=== PATIENT | male | born 1945 | race Caucasian/White ===

== ENCOUNTER 2017-09-15 10:24 | Day surgery (SDC) | payer MEDICARE, OTHER ==
[2017-09-14 09:46] LABS: CHLORIDE 108 mmol/L (98-107)
[2017-09-14 09:47] LABS: ALANINE AMINOTRANSFERASE 19 U/L (12-78); ALBUMIN 3.9 g/dL (3.4-5.0); ANION GAP 5 mmol/L (5-15); CALCIUM 8.5 mg/dL (8.5-10.1)
[2017-09-14 09:49] LABS: ALKALINE PHOSPHATASE 69 U/L (45-117); CREATININE 0.77 mg/dL (0.7-1.3); TOTAL PROTEIN 7.7 g/dL (6.4-8.2)
[~2017-09-15] VITALS: Ht 182.9 cm; Wt 96.3 kg
[~2017-09-15 10:24] MED LIST: ENAL10TA PO; LACTATED RINGERS 1,000 ML IV SCH; METO25TA91 PO; NILO200C PO; OMEP40CA6 PO; PROPOFOL 10 MG/ML, 20ML ONE; RIVA20TA PO
[2017-09-15 10:56] VITALS: BP 170/99
[2017-09-15] MEDS ORDERED: PROPOFOL 10 MG/ML, 20ML ONE ×3 (11:23→11:57)
[2017-09-15] MEDS ORDERED: ALBUTEROL SULFATE 2.5 MG/3 ML ONE (12:24)
[2017-09-15] MEDS ORDERED: ALBUTEROL SULFATE 2.5 MG/3 ML NPPB ONE (12:30)
== END 2017-09-15 14:15 ==
LOC: OUT 10:24
PROVIDERS: ATTEND Internal Medicine
DX: K22.711 Barrett's esophagus with high grade dysplasia (principal); K21.9 Gastro-esophageal reflux disease without esophagitis; K44.9 Diaphragmatic hernia without obstruction or gangrene; K83.8 Other specified diseases of biliary tract; I10 Essential (primary) hypertension; Z87.39 Personal history of other diseases of the musculoskeletal system and connective tissue; Z86.19 Personal history of other infectious and parasitic diseases; Z96.641 Presence of right artificial hip joint
CPT/HCPCS: 36415; 43270; 80053; 93005; 94640; J2704; J7120